=== PATIENT | female | born 1995 | race Caucasian/White ===

== ENCOUNTER → 2021-11-19 14:10 | Outpatient (CLI) | payer OTHER, SELFPAY ==
[2021-11-19 14:48] LABS: COVID19 -Nasal RAPID Negative (Negative)
== END ==
PROVIDERS: Visit Provider Obstetrics & Gynecology
DX: Z01.812 Encounter for preprocedural laboratory examination (principal); Z20.822 Contact with and (suspected) exposure to COVID-19
CPT/HCPCS: 87635

== ENCOUNTER 2021-11-20 06:22 | Day surgery (SDC) | payer OTHER, SELFPAY ==
[2021-11-18 09:42] VITALS: BMI 25.8
[2021-11-20] VITALS (7 sets, daily range): BP systolic 125–139; BP diastolic 67–88; PULSE 64–94; RESP 11–20; TEMP 36.4–36.9; O2SAT 97–100; BMI 25.8
--- NOTE | 2021-11-20 | PATH_ITS ---
[facility] Accession Number: [id number] No. of containers..01 Tissue . 01 Material submitted: . peritoneum - PERITONEAL BIOPSY . 01 Diagnosis: Peritoneum, Biopsy: Mesothelial lined fibroadipose tissue with involvement by endometriosis. Negative for malignancy. MRV 11/27/2021 1355 Local . 01 Comment: *Immunostains to CD10 and PAX8 are obtained, with the controls stained appropriately. The glandular-like structure present shows uniform expression with PAX8 on the epithelial cells and uniform expression with CD10 on the minimal stromal-type cells associated, confirming the suspected morphologic suspicion of endometriosis as opposed to a mesothelial surface. . * This test was developed and its performance characteristics determined by [facility]. It has not been cleared or approved by the U.S. Food and Drug Administration. The FDA has determined that such clearance or approval is not necessary. This test is used for clinical purposes. It should not be regarded as investigational or for research. . 01 Electronically signed: . Ryann Colin MD, Pathologist NPI- [id number] . 01 Gross description: . PERITONEAL BIOPSY: Received in formalin is 1 fragment of santiago soft tissue measuring 0.7 x 0.6 x 0.1 cm. Tissue is inked. Specimen is sectioned and submitted in its entirety in 1 cassette. /ARGELIA 11/23/20212208 Local . 01 Pathologist provided ICD-10: R10.2 . 01 CPT . 122830, Q84125, J09547 Specimen Comment: A courtesy copy of this report has been sent to [phone] Performed at: 01 [facility] [address] [place] [address] [address], [place], [place] [id number] MD Toro Garner MD Phone: [phone]
[2021-11-20] MEDS: LACTATED RINGERS 1,000 ML 42 ML IV (07:12)
--- NOTE | 2021-11-20 07:35 | PM.PREOP ---
Pre-operative Note COVID-19 COVID-19 status: Negative Result date/Date tested (Pos, Neg/Pending): 11/20/21 Criteria for continued procedure: Non-surgical alternatives not available or appropriate per current SOC Interval Note History & Physical reviewed/Exam performed by Physician: Yes Changes to H&P: No
[2021-11-20] MEDS: ACETAMINOPHEN IV 1,000 MG/100 ML VIAL 400 MG IV (08:05)
--- NOTE | 2021-11-20 08:23 | SUR.OPER ---
Lithotomy on padded OR bed, head on pillow, arms padded and tucked at sides. Legs secured in padded yellow fins stirrups.
[2021-11-20] MEDS: BUPIVACAINE 0.5% (PF) 30 ML, EPINEPHrine 0.15 MG INJ (08:49)
--- NOTE | 2021-11-20 09:11 | PM.GYNOP.1 ---
Operative Date/Time/Diagnoses Date of procedure: 11/20/21 Time of procedure: 08:00 Pre-op diagnosis: Chronic pelvic pain Dysmenorrhea Dyspareunia Post-op diagnosis: same Procedure & Clinicians Procedure: Procedures Operation Date: 11/20/21 07:45 Actual Procedure Side Surgeon alex ZUNIGA Laparoscopy w. excision/Fulguration of Endometrial implants Corey Stoll MD Indications: Agustin is a 26-year-old G0, LMP 10/02/2021 presents with a 1 year history of progressively severe pelvic pain, and new onset deep dyspareunia as well as pain with defecation.? All the symptoms are worse during menses and the week prior.? Patient describes a sense of pelvic heaviness which is greater on the left than the right.? She was diagnosed clinically with interstitial cystitis 5 years ago but with dietary changes those symptoms have abated.? Patient's menarche occurred at age 12 and following her initial menses she had a 4 year hiatus with menses resuming at age 16.? She was placed on triphasic oral contraceptives with some benefit and was subsequently switched to extended cycle OCs which provided additional relief.? A Mirena IUD was placed in December of 2019 and although her periods are less frequent, she continues to have sporadic menses with her most recent being 10/02/2021.? Patient states that throughout her entire reproductive life, her periods have been painful.? Her symptoms however steadily worsening and currently she is in pain 25/30 days with marked increase with her menses.? Deep dyspareunia has also developed and worsened over the last 12 - 18 months.? Patient has never attempted become and is unlikely to do so in the near future since she lost an aunt in childbirth.? Patient's Paps have been normal but she is uncertain as to when her last Pap was taken.? Pelvic ultrasound performed at [facility] on 10/03/1999 21 showed the IUD to be in normal position with normal ovaries on both sides and a small amount of free fluid in the posterior cul-de-sac.? A more recent ultrasound performed at [facility] today shows similar findings with a slightly enlarged right ovary measuring 3.8 x 3.1 x 4.7 cm and contains multiple small follicles otherwise is normal in appearance.? There is a trace of fluid adjacent to the right ovary as well.? The left ovary is normal with scattered small follicles.? The cervix and uterus were both normal as well and the IUD is normally positioned.? Endometrial stripe measures 5 mm in maximal double wall thickness. After consideration of all options, the patient has decided to proceed with diagnostic laparoscopy with plans for excision/fulguration of endometrial implants if endometriosis is diagnosed.? She presents today for her scheduled surgery. Surgeon: Corey Stoll Supervisor Engine Assembly: Valerie Richardson Anesthesia Type: General Operative Notes Findings: The retroverted uterus is normal in size and shape. Both fallopian tubes are normal. Both ovaries are normal. The right ovarian fossa shows no abnormalities. The left ovarian fossa as a small cluster of superficial endometriotic implants which were excised during the course of the procedure. There were no other visible endometrial implants in the posterior cul-de-sac. The appendix appears normal but is largely retrocecal. The upper abdomen is normal to laparoscopic visualization. Closure Type: primary Specimen(s): other (Peritoneal biopsy, left ovarian fossa) Estimated blood loss (mL): 10 Blood products transfused: none Procedure in detail: With the patient under satisfactory general endotracheal anesthesia in the modified dorsal lithotomy position, the perineum, vagina, and abdomen were prepped and draped in the usual manner for laparoscopy. A pre-surgical safety time-out was then taken in accordance with [facility] Main OR protocols. A speculum was inserted in the vagina and the endocervical canal dilated with Hegar dilators to a width of 6 mm. A Zumi manipulator was then inserted in the endometrial cavity. The inferior aspect of the umbilicus was infiltrated with 0.5% Marcaine with epinephrine and a 5 mm vertical incision was then made in the skin of the inferior edge of the umbilicus. A Veress needle was then used to insufflate the abdomen with carbon dioxide and once properly insufflated, a 5 mm laparoscopic trocar and sleeve were inserted through the umbilical incision. Confirmation of the appropriate location of the trocar in the abdominal cavity was confirmed with the laparoscoped. Two additional 5 mm ports were placed in the left and right mid quadrants using a similar technique. Using a 3 puncture technique, the pelvis and abdomen were thoroughly visualized with the findings as noted above. The area of endometriosis in the left ovarian fossa was then grasped with the [place] forceps and elevated so as to be able to excise the endometriosis. The excised peritoneal surface was submitted as a pathologic specimen. The area was irrigated and closely inspected with small points of oozing identified and rendered hemostatic with judicious use of monopolar cautery using a J-hook. The left ureter was seen peristalsing freely before and after excision of the endometriosis and control of small areas of oozing from the peritoneal surface. The pelvis was irrigated thoroughly again and reinspected for any additional abnormalities. There were none and the procedure was then terminated by bending of the pneumoperitoneum and removal of the trocars from the abdominal cavity. The laparoscopic port incisions were then closed with 4-0 Monocryl using inverted interrupted stitches and skin glue was applied. Appropriate dressings were applied, the patient awakened from anesthesia, and transferred to the PACU for a period of observation and recovery having tolerated the procedure well. Complications: none Post-operative Condition: stable Disposition: PACU Plan for aftercare: Routine postoperative care. Follow-up in 2 weeks or as needed.
[2021-11-20] MEDS: ONDANSETRON 4 MG/2 ML INJ IV (09:25)
[2021-11-20] MEDS: OXYCODONE IR 5 MG TABLET PO (09:25)
--- NOTE | 2021-11-20 10:15 | SUR.PHASEII ---
Assumed care of pt. d/c instructions discussed, pt voiced an understanding. Pt voiced a readiness to go home. Sat on side of bed, stating she was comfortable getting dress. walked pt to BR, steady when up. Pt left in stable condition.
== END 2021-11-20 10:20 | disposition home or self-care (01) ==
PROVIDERS: Referring Provider Obstetrics & Gynecology; Visit Provider Obstetrics & Gynecology
PROC: 0U5B4ZZ Destruction of Endometrium, Percutaneous Endoscopic Approach (ICD-10-PCS; CPT 58662; principal; 2021-11-20 07:45)
DX: N80.3 Endometriosis of pelvic peritoneum (principal)
CPT/HCPCS: 58662; 81025; J0131; J0171; J1100; J2250; J2405; J2704; J3010

== ENCOUNTER → 2022-03-16 15:57 | Outpatient (CLI) | payer OTHER, SELFPAY ==
--- NOTE | 2022-03-16 15:58 | DI.US.S_ITS ---
PROCEDURE: US PELVIC COMPLETE INDICATIONS: Cramping/Spotting/Check IUD placement TECHNIQUE: Real-time scanning was performed of the pelvic organs, with image documentation. Additional endovaginal scanning was necessary due to incomplete visualization of the adnexal and endometrial structures by transabdominal scanning. COMPARISON: [facility], , US PELVIC COMPLETE, 02/09/2021, 10:53. [facility], , US PELVIC COMPLETE, 10/09/2021, 8:59. FINDINGS: Uterus: Uterus is retroverted and normal in size at 6.5 x 3.2 x 4.5 cm. The myometrium is homogeneous and dynamic. The endometrium measures 1.6 mm combined thickness. Intrauterine device in expected position. Ovaries: Normal ovaries bilaterally measuring 4.0 x 1.7 x 2.2 cm on the right and 4.7 x 2.8 x 3.2 cm on the left. Other: No pathologic free abdominal or pelvic fluid. IMPRESSION: 1. Intrauterine device in expected position. 2. No source for cramping and spotting identified. We strive to produce accurate, complete, and clear reports of imaging services. To assist us in improving patient care, this report was composed using standard report templates and voice recognition software. Therefore, it may contain abnormal punctuation, insertions and/or omissions. Occasional wrong-word or sound-alike substitutions may occur. Though we review the report and make efforts to correct it, we do recommend that the report be read carefully in proper context to recognize any text inaccuracies. Dictated by: Shalom PICKENS Interpreted: Dave Nicole MD on 03/16/2022 at 16:58 Transcribed by: CHRISTAL on 03/16/2022 at 16:59 Approved by: Dave Nicole M.D. on 03/16/2022 at 17:58
== END ==
PROVIDERS: PCP Student in an Organized Health Care Education/Training Program; Referring Provider Obstetrics & Gynecology; Visit Provider Obstetrics & Gynecology
DX: N92.3 Ovulation bleeding (principal); R10.2 Pelvic and perineal pain; Z97.5 Presence of (intrauterine) contraceptive device
CPT/HCPCS: 76830; 76856

== ENCOUNTER → 2023-05-10 18:40 | Outpatient (CLI) | payer OTHER, SELFPAY ==
--- NOTE | 2023-05-10 | DI.MRI.S_ITS ---
PROCEDURE: MR PELVIS WO/W CON INDICATIONS: Endometriosis, unspecified TECHNIQUE: Coronal HASTE, sagittal breath-hold T2 FSE; axial T1 FSE with and without fat saturation through the pelvis. Optional long- and short-axis uterine nonbreath-hold T2 FSE through the uterus. Sagittal or axial dynamic VIBE during administration of contrast. Post-contrast axial or coronal VIBE/2-D FLASH with fat saturation from the iliac crests to the symphysis. Optional diffusion weighted imaging and ADC may be performed. Comparison: 03/16/2022 ultrasound FINDINGS: Image quality: Good Lower abdomen: No evidence of small bowel obstruction. There is moderate fecal loading. Bladder: Unremarkable. Reproductive organs: IUD in place. A vaginal device is also in place. The uterus is retroverted. The endometrium is normal thickness. No pathologic junctional zone thickening. The ovaries appear prominent bilaterally, without discrete mass. Numerous small follicles are seen. The volume of both ovaries is about 9-10 cc. No discrete endometrioma on precontrast T1 weighted images. A small amount pelvic free fluid is probably physiologic. In the deep pelvis, no definite intrinsically T1 hyperintense deposits of active endometriosis tissue Rectum: Unremarkable Vessels and lymph nodes: No aneurysmal vessel or pathologic adenopathy identified Pelvic wall: Unremarkable Bones: No acute or suspicious osseous abnormality. IMPRESSION: No active endometrioma or deep pelvic endometriosis deposits. The uterus is retroverted, which may be due to normal variant positioning. If the patient has known endometriosis, this could also be related to previous fibrosis. Prominent bilateral ovaries with numerous small follicles seen. IUD and vaginal ring are present. Dictated by: Riki Godinez M.D. on 05/11/2023 at 9:11 Approved by: Riki Godinez M.D. on 05/11/2023 at 9:26
== END ==
PROVIDERS: PCP Student in an Organized Health Care Education/Training Program; Referring Provider Student in an Organized Health Care Education/Training Program; Visit Provider Student in an Organized Health Care Education/Training Program
DX: N80.9 Endometriosis, unspecified (principal); N80.03 Adenomyosis of the uterus
CPT/HCPCS: 72197; A9579

== ENCOUNTER → 2024-10-31 16:02 | Outpatient (CLI) | payer OTHER, SELFPAY ==
--- NOTE | 2024-10-31 16:03 | DI.US.S_ITS ---
PROCEDURE: US PELVIC COMPLETE INDICATIONS: CHRONIC PELVIC PAIN. HISTORY OF ENDOMETRIOSIS. TECHNIQUE: Real-time scanning was performed of the pelvic organs, with image documentation. Additional endovaginal scanning was necessary due to incomplete visualization of the adnexal and endometrial structures by transabdominal scanning. COMPARISON: [facility], MR, MR PELVIS WO/W CON, 05/10/2023, 18:44. [facility], , US PELVIC COMPLETE, 10/09/2021, 8:59. [facility], , US PELVIC COMPLETE, 02/09/2021, 10:53. [facility], , US PELVIC COMPLETE, 03/16/2022, 16:30. FINDINGS: Uterus: Uterus is anteverted and normal in size at 5.4 x 4.8 x 3.6 cm. The myometrium is homogeneous. The endometrium measures 5 mm combined thickness. No abnormal vascularity can be seen along the endometrial stripe. Ovaries: The right ovary measures 5.2 x 3.3 x 1.9 cm, with a calculated ovarian volume of 17.6 cc. The left ovary measures 4.4 x 3.4 x 3.2 cm, with a calculated ovarian volume of 25.1 cc. Within the left ovary, there is a complex lesion with peripheral vascularity that measures up to 16 mm. More than 12 follicles can be seen in each ovary. No adnexal masses are seen. Other: A mild amount of free pelvic fluid is seen, which is considered to be within physiologic limits. IMPRESSION: More than 12 follicles can be seen involving each ovary, which is suggestive of polycystic ovarian syndrome. However, please correlate with clinical data. Complex lesion seen within the left ovary that measures up to 16 mm, which may represent a complex cyst versus a true mass. If it would be clinically appropriate, a followup pelvic ultrasound could be considered in 6 weeks to assure resolution/ improvement. We strive to produce accurate, complete, and clear reports of imaging services. To assist us in improving patient care, this report was composed using standard report templates and voice recognition software. Therefore, it may contain abnormal punctuation, insertions and/or omissions. Occasional wrong-word or sound-alike substitutions may occur. Though we review the report and make efforts to correct it, we do recommend that the report be read carefully in proper context to recognize any text inaccuracies. Dictated by: Anival Robles M.D. on 10/31/2024 at 16:28 Approved by: Anival Robles M.D. on 10/31/2024 at 16:30
== END ==
PROVIDERS: Referring Provider Obstetrics & Gynecology; Visit Provider Obstetrics & Gynecology
DX: N80.03 Adenomyosis of the uterus (principal); N97.9 Female infertility, unspecified; N83.9 Noninflammatory disorder of ovary, fallopian tube and broad ligament, unspecified; R10.2 Pelvic and perineal pain
CPT/HCPCS: 76830; 76856

== ENCOUNTER → 2024-11-07 09:24 | Outpatient (CLI) | payer OTHER, SELFPAY ==
[2024-11-07 11:00] LABS: Follicle Stimulating Hormone 5.44 mIU/mL; Luteinizing Hormone 6.01 mIU/mL; Prolactin 18.8 ng/mL (3.0-18.6)
[2024-11-07 11:15] LABS: TSH w/ Reflex to FT4 2.13 uIU/mL (0.47-4.68)
== END ==
PROVIDERS: Referring Provider Obstetrics & Gynecology; Visit Provider Obstetrics & Gynecology
DX: N97.9 Female infertility, unspecified (principal)
CPT/HCPCS: 36415; 83001; 83002; 84146; 84443